=== PATIENT | male | born 1955 | race Asian ===

== ENCOUNTER 2018-07-28 10:26 | Emergency (ER) | payer OTHER ==
[~2018-07-28] VITALS: Ht 170.2 cm; Wt 68.0 kg
--- NOTE | 2018-07-28 10:36 | NUR ---
ED Nurse Note: PT WALKED IN TO ER TODAY FROM HOME. AOX4. PT C/O SOB X THIS AM. RR32 @ 96% O2SAT ON RA. PT ALSO C/O GENERALIZED BODY ACHE, 10/10, NAUSEA, ABOUT 10 EPISODES OF VOMITING AND DIARRHEA X THIS AM. ACTIVE BOWEL SOUNDS IN ALL QUADRANTS. ABDOMEN NONDISTENDED AND NONTENDER TO PALPATION.
[2018-07-28 10:38] VITALS: BP 144/95
[2018-07-28] MEDS ORDERED: Aspirin Baby 81mg ORAL ONE (10:45)
[2018-07-28 10:55] LABS: HEMATOCRIT 51.7 % (42.0-52.0); HEMOGLOBIN 17.1 G/DL (14.2-18.0); MEAN CORPUSCULAR VOLUME 101 FL (80-99); PLATELET COUNT 99 K/UL (150-450); RED BLOOD COUNT 5.12 M/UL (4.70-6.10); RED CELL DISTRIBUTION WIDTH 12.2 % (11.6-14.8); WHITE BLOOD COUNT 7.2 K/UL (4.8-10.8)
--- NOTE | 2018-07-28 10:58 | NUR ---
ED Nurse Note: XRAY AT BEDSIDE
[2018-07-28 11:08] LABS: ANION GAP 9 mmol/L (5-15); BLOOD UREA NITROGEN 14 mg/dL (7-18); CALCIUM 8.8 MG/DL (8.5-10.1); CARBON DIOXIDE 27 MMOL/L (21-32); CHLORIDE 105 MMOL/L (98-107); CREATININE 1.1 MG/DL (0.55-1.30); POTASSIUM 5.3 MMOL/L (3.5-5.1); SODIUM 141 MMOL/L (136-145)
[2018-07-28] MEDS ORDERED: Isovue-370 150ml vial INJ PRN (11:15)
[2018-07-28] MEDS ORDERED: Morphine Sulfate 4mg/ml Inj (IV/IM USE ONLY) IVP ONE ×3 (11:15→14:00)
[2018-07-28] MEDS ORDERED: UNOBMED (11:23)
[2018-07-28 11:24] LABS: ALANINE AMINOTRANSFERASE 17 U/L (12-78); ALBUMIN 3.6 G/DL (3.4-5.0); ALBUMIN/GLOBULIN RATIO 0.9 (1.0-2.7); ALKALINE PHOSPHATASE 65 U/L (46-116); ASPARTATE AMINO TRANSFERASE 34 U/L (15-37); BILIRUBIN,TOTAL 0.8 MG/DL (0.2-1.0); CKMB 0.7 NG/ML (0.0-3.6); CREATINE KINASE 189 U/L (26-308)
--- NOTE | 2018-07-28 11:27 | NUR ---
ED Nurse Note: PT TO CT VIA [facility]NA[facility]
[2018-07-28 11:33] LABS: APPEARANCE,URINE SLIGHTLY CLOUDY; BILIRUBIN, URINE 1+ (NEGATIVE); GLUCOSE, URINE (UA) NEGATIVE (NEGATIVE); KETONES,URINE 1+ (NEGATIVE); LEUKOCYTE ESTERASE ,URINE 1+ (NEGATIVE); NITRITE,URINE NEGATIVE (NEGATIVE); PH,URINE 5 (4.5-8.0); PROTEIN,URINE 1+ (NEGATIVE); UROBILINOGEN,URINE 1 MG/DL (0.0-1.0)
[2018-07-28 11:36] LABS: COLOR,URINE YELLOW
[2018-07-28 12:00] VITALS: BP 132/96
--- NOTE | 2018-07-28 12:51 | Diagnostic Imaging Report ---
CLINICAL INDICATION:Shortness of breath, chest pain, nausea, vomiting, diarrhea TECHNIQUE: Administration nonionic contrast. Arterial phase spiral acquisitions obtained through the chest, abdomen, and pelvis. Multiplanar and 3-D reconstructions were generated. Total dose length product 923.22 mGycm. CTDIvol(s) 12.56 mGy. Radiation dose was minimized using automated exposure control COMPARISON: none FINDINGS Aorta and branches: No evidence of thoracic aortic aneurysm or dissection. Grossly normal proximal great neck vessels, although the left common carotid artery is obscured proximally by artifact from the adjacent contrast filled innominate vein. The ascending thoracic aorta is somewhat ectatic although not aneurysmal, results in some extrinsic compression of the left innominate vein. This may be borderline significant as there are a few small collateral vessels present within the mediastinum. 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 This may be due to arcuate ligament compression the distal celiac axis and proximal branches are normal in caliber and demonstrate normal branching anatomy.. Normal caliber superior mesenteric artery and branches. There are single bilateral renal arteries, which are normal in caliber. There is no evidence of abdominal aortic aneurysm or dissection. Normal caliber common, internal, and external iliac arteries. Exam protocol is not tailored for exclusion of pulmonary embolus. Well opacified and there is no evidence of acute pulmonary embolus demonstrated. Chest: There is extensive pneumomediastinum present. The pneumomediastinum is seen surrounding the trachea, esophagus, thyroid, and neurovascular bundles in the upper mediastinum and neck, and probably surrounds the esophagus distally, but is also seen adjacent to the distal trachea and the aorta. The proximal esophagus is gas-filled. Distal esophagus is normal in caliber. No definite rupture of the esophageal wall is demonstrated. The tracheal wall likewise appears intact. Somewhat low attenuation material is seen in the left hilum, lateral to the distal thoracic aorta, and to a lesser extent in the right pulmonary hilum. There is also a small amount of fluid in the left pleural space which appears to be communicating with the mediastinal abnormality. There is no evidence of pneumothorax. Gas is also seen dissecting into the neck beyond the imaging volume, and a few bubbles of gas are seen in the fat planes of the upper thoracic paraspinous musculature. Gas does not appear to extend below the diaphragm. The lungs demonstrate areas of hyperinflation, predominantly in the upper lobes, as well as a few small upper lobe bullae. There are posterior dependent atelectatic changes. There may be trace pleural fluid on the right. The heart size is normal. There is no evidence of pericardial effusion. No mediastinal or hilar mass or adenopathy. The included portion of the thyroid is unremarkable. The bones are unremarkable Abdomen pelvis: The appendix is normal. One or more small diverticula are seen in the sigmoid colon. No evidence of diverticulitis. No small bowel distention. No free or loculated intraperitoneal gas or fluid is evident. The stomach is somewhat distended, otherwise unremarkable. The liver, gallbladder, bile ducts, pancreas, spleen, adrenals, kidneys are all unremarkable. No retroperitoneal or mesenteric mass or adenopathy. The prostate is slightly prominent, contains calcification, otherwise unremarkable. The bones demonstrate bilateral L5 pars interarticularis defects. Only minimal associated spondylolisthesis. The bones are otherwise unremarkable. IMPRESSION: Extensive pneumomediastinum, with emphysema also extending into the neck beyond the imaging volume and into the soft tissues of the upper back. There is also suggestion of abnormal material or fluid within the lower mediastinum and extending into the left pleural space. Etiology not definitely demonstrated. However, given the greater extent of abnormality in the lower mediastinum as well as evidence of possible leak mediastinal and left pleural material/fluid, distal esophageal rupture is certainly a possible etiology Negative for evidence of aortic aneurysm or dissection. Negative for evidence of acute pulmonary embolus Pulmonary hyperinflation bilaterally, likely COPD Posterior dependent pulmonary atelectatic changes. Possible trace right pleural effusion No acute abdominal or pelvic pathology demonstrated Bilateral L5 spondylolysis. Minimal if any associated spondylolisthesis Findings discussed by phone with Dr. Meier in the emergency room at the time of interpretation The CT scanner at [facility] is accredited by the [employer] and the scans are performed using protocols designed to limit radiation exposure to as low as reasonably achievable to attain images of sufficient resolution adequate for diagnostic evaluation.
[2018-07-28] MEDS ORDERED: Pantoprazole 80 MG in NS 250 ML IV ONE (13:00)
[2018-07-28] MEDS ORDERED: Piperacillin/Tazobactam 4.5 GM in NS 110 ML IVPB ONE (13:00)
[2018-07-28] MEDS ORDERED: Pantoprazole Inj IVP ONE (13:00)
--- NOTE | 2018-07-28 13:15 | Emergency Room Report ---
History of Present Illness General Chief Complaint: Chest Pain Source: Patient Present Illness HPI This patient states that he developed chest pain, abdominal pain and back pain this morning. Since that he had several episodes of vomiting this morning. He is also had diarrhea. He states that he developed the chest pain, back pain and abdominal pain after the vomiting. He denies fever or chills. He has no other complaints. Allergies: Coded Allergies: No Known Allergies (Unverified , 07/28/18) Patient History Past Medical History: HTN Social History: Denies: smoking, alcohol use, drug use Reviewed Nursing Documentation: PMH: Agreed; PSxH: Agreed Nursing Documentation-PMH Hx Hypertension: Yes Review of Systems All Other Systems: negative except mentioned in HPI Physical Exam Vital Signs Date Time Temp Pulse Resp B/P (MAP) Pulse Ox O2 Delivery O2 Flow Rate FiO2 07/28/18 10:28 97.9 98 20 131/73 98 Room Air Sp02 EP Interpretation: reviewed, normal General Appearance: no apparent distress, alert, GCS 15, non-toxic Head: normocephalic, atraumatic Eyes: bilateral eye normal inspection, bilateral eye PERRL ENT: hearing grossly normal, normal pharynx, no angioedema, normal voice Neck: full range of motion, supple/symm/no masses Respiratory: chest non-tender, lungs clear, normal breath sounds, no respiratory distress, no retraction, no accessory muscle use, speaking full sentences Cardiovascular #1: regular rate, rhythm, no edema Gastrointestinal: normal bowel sounds, non tender, soft, non-distended, no guarding, no rebound Rectal: deferred Musculoskeletal: back normal, gait/station normal, normal range of motion, non- tender Neurologic: alert, oriented x3, responsive, motor strength/tone normal, sensory intact, speech normal Psychiatric: judgement/insight normal, memory normal, mood/affect normal, no suicidal/homicidal ideation Skin: normal color, no rash, warm/dry, well hydrated Medical Decision Making Diagnostic Impression: Primary Impression: Pneumomediastinum Additional Impression: Boerhaave's syndrome ER Course This patient is found to have a pneumomediastinum and pleural fluid on CT of the chest that is concerning for a ruptured esophagus. This is consistent with the patient's history of multiple episodes of emesis prior to the onset of the symptoms. Although there was no actual esophageal tear identified on CT this is highest on the differential. Also a consideration is a tracheal tear. The patient was given IV broad-spectrum antibiotics and IV proton pump inhibitors and pain medication. The patient is transferred to [facility] for higher level of care and evaluation by cardiothoracic surgery. This patient is critically ill. This patient required complex medical decision- making, aggressive intervention, extensive laboratory workup and monitoring. Critical care time: 40 minutes. Laboratory Tests Test 07/28/18 10:30 07/28/18 10:49 White Blood Count 7.2 K/UL (4.8-10.8) Red Blood Count 5.12 M/UL (4.70-6.10) Hemoglobin 17.1 G/DL (14.2-18.0) Hematocrit 51.7 % (42.0-52.0) Mean Corpuscular Volume 101 FL (80-99) H Mean Corpuscular Hemoglobin 33.4 PG (27.0-31.0) H Mean Corpuscular Hemoglobin Concent 33.1 G/DL (32.0-36.0) Red Cell Distribution Width 12.2 % (11.6-14.8) Platelet Count 99 K/UL (150-450) L Mean Platelet Volume 6.7 FL (6.5-10.1) Neutrophils (%) (Auto) % (45.0-75.0) Lymphocytes (%) (Auto) % (20.0-45.0) Monocytes (%) (Auto) % (1.0-10.0) Eosinophils (%) (Auto) % (0.0-3.0) Basophils (%) (Auto) % (0.0-2.0) Differential Total Cells Counted 100 Neutrophils % (Manual) 85 % (45-75) H Lymphocytes % (Manual) 10 % (20-45) L Monocytes % (Manual) 5 % (1-10) Eosinophils % (Manual) 0 % (0-3) Basophils % (Manual) 0 % (0-2) Band Neutrophils 0 % (0-8) Platelet Estimate Decreased L Platelet Morphology Normal Red Blood Cell Morphology Normal Prothrombin Time 10.1 SEC (9.30-11.50) Prothrombin Time INR 1.0 (0.9-1.1) Sodium Level 141 MMOL/L (136-145) Potassium Level 5.3 MMOL/L (3.5-5.1) H Chloride Level 105 MMOL/L (98-107) Carbon Dioxide Level 27 MMOL/L (21-32) Anion Gap 9 mmol/L (5-15) Blood Urea Nitrogen 14 mg/dL (7-18) Creatinine 1.1 MG/DL (0.55-1.30) Estimate Glomerular Filtration Rate > 60 mL/min (>60) Glucose Level 145 MG/DL (74-106) H Calcium Level 8.8 MG/DL (8.5-10.1) Total Bilirubin 0.8 MG/DL (0.2-1.0) Aspartate Amino Transferase (AST) 34 U/L (15-37) Alanine Aminotransferase (ALT) 17 U/L (12-78) Alkaline Phosphatase 65 U/L (46-116) Total Creatine Kinase 189 U/L (26-308) Creatine Kinase MB 0.7 NG/ML (0.0-3.6) Creatine Kinase MB Relative Index 0.3 Troponin I 0.000 ng/mL (0.000-0.056) Pro-B-Type Natriuretic Peptide 56 pg/mL (0-125) Total Protein 7.6 G/DL (6.4-8.2) Albumin 3.6 G/DL (3.4-5.0) Globulin 4.0 g/dL Albumin/Globulin Ratio 0.9 (1.0-2.7) L Urine Color Yellow Urine Appearance Slightly cloudy Urine pH 5 (4.5-8.0) Urine Specific Oolitic 1.025 (1.005-1.035) Urine Protein 1+ (NEGATIVE) H Urine Glucose (UA) Negative (NEGATIVE) Urine Ketones 1+ (NEGATIVE) H Urine Blood Negative (NEGATIVE) Urine Nitrite Negative (NEGATIVE) Urine Bilirubin 1+ (NEGATIVE) H Urine Ictotest Negative (NEGATIVE) Urine Urobilinogen 1 MG/DL (0.0-1.0) H Urine Leukocyte Esterase 1+ (NEGATIVE) H Urine RBC 0-2 /HPF (0 - 0) H Urine WBC 2-4 /HPF (0 - 0) Urine Squamous Epithelial Cells Occasional /LPF Urine Bacteria Occasional /HPF (NONE) Urine Fine Granular Casts 0-2 /LPF (NONE) H Urine Mucus Many /LPF (NONE/OCC) H EKG Diagnostic Results Rate: tachycardiac Rhythm: other - S.tachycardia ST Segments: other - NSST ASA given to the pt in ED: Yes Rhythm Strip Diag. Results EP Interpretation: yes Rate: 110's Rhythm: no PVC's, no ectopy, other - S.tachycardia Chest X-Ray Diagnostic Results Chest X-Ray Diagnostic Results : Chest X-Ray Ordered: Yes # of Views/Limited/Complete: 1 View Indication: Chest Pain EP Interpretation: Yes Interpretation: other - pneumomediastinum, L. pleural effusion Impression: Other - See above Electronically Signed by: Samra Trevizo DO CT/MRI/US Diagnostic Results CT/MRI/US Diagnostic Results : Imaging Test Ordered: CT CHEST/ABD/PELVIS Impression IMPRESSION: Extensive pneumomediastinum, with emphysema also extending into the neck beyond the imaging volume and into the soft tissues of the upper back. There is also suggestion of abnormal material or fluid within the lower mediastinum and extending into the left pleural space. Etiology not definitely demonstrated. However, given the greater extent of abnormality in the lower mediastinum as well as evidence of possible leak mediastinal and left pleural material/fluid, distal esophageal rupture is certainly a possible etiology Negative for evidence of aortic aneurysm or dissection. Negative for evidence of acute pulmonary embolus Pulmonary hyperinflation bilaterally, likely COPD Posterior dependent pulmonary atelectatic changes. Possible trace right pleural effusion No acute abdominal or pelvic pathology demonstrated Bilateral L5 spondylolysis. Minimal if any associated spondylolisthesis Last Vital Signs Date Time Temp Pulse Resp B/P (MAP) Pulse Ox O2 Delivery O2 Flow Rate FiO2 07/28/18 10:38 98 20 Room Air 07/28/18 10:38 98.2 144/95 98 Disposition: XFER SHT-TRM HOSP Condition: Critical Referrals: NON PHYSICIAN (PCP) Samra Trevizo DO Jul 28, 2018 13:15
[2018-07-28 13:24] VITALS: BP 119/84
--- NOTE | 2018-07-28 15:05 | Diagnostic Imaging Report ---
Indication: Chest pain, shortness of breath Technique: One view of the chest Comparison: none Findings: There is extensive subcutaneous emphysema within the neck. There are small bilateral pleural effusions. There is some retrocardiac consolidation. Hazy opacity is seen in the right lung base, likely reflecting dependent atelectatic changes seen on subsequent chest CT. Mediastinal emphysema seen on subsequent chest CT is less evident, although a small amount of gas is visible paralleling the descending thoracic aorta Impression: Bilateral neck and supraclavicular soft tissue emphysema, corresponding to findings reported on subsequent chest CT Retrocardiac consolidation small bilateral pleural effusions
--- NOTE | 2018-07-28 15:21 | NUR ---
ED Nurse Note: [facility] CALLED FOR PT TRANSFER. REPORT GIVEN TO THERON SILVA. [facility] READY TO ACCEPT PT. AWAITING AMBULANCE FOR PT TRANSFER.
[2018-07-28 15:22] VITALS: BP 113/77
--- NOTE | 2018-07-28 16:18 | NUR ---
ED Nurse Note: [facility] AT BEDSIDE WITH [facility]ED FROM [facility]. REPORT GIVEN TO ALL PARTIES. PT TRANSFERRED VIA GURNEY WITH PROTONIX 80MG IN 250NS @ 25ML/HR RUNNING AND ALL BELONGINGS.
[2018-07-28 16:19] VITALS: BP 134/82
[2018-07-28 16:20] VITALS: BP 134/82
== END 2018-07-28 16:32 | disposition short-term general hospital (02) ==
LOC: EMR 11:26
DX: J98.2 Interstitial emphysema (principal); K22.3 Perforation of esophagus; I10 Essential (primary) hypertension; R00.0 Tachycardia, unspecified; I27.20 Pulmonary hypertension, unspecified; F17.200 Nicotine dependence, unspecified, uncomplicated; M47.896 Other spondylosis, lumbar region
CPT/HCPCS: 36415; 71045; 71275; 74174; 80053; 81003; 82550; 82553; 83880; 84484; 85007; 85025; 85610; 93005; 96365; 96366; 96368; 96375; 96376; 99291; C9113; J2270; J2543; J7050; Q9967